=== PATIENT | male | born 1980 | race Caucasian/White ===

== ENCOUNTER 2018-05-16 12:39 | Inpatient (IN) | payer BC, OTHER ==
[~2018-05-16] VITALS: Ht 188 cm; Wt 108.9 kg
[2018-05-16 13:10] VITALS: BP 135/91
[2018-05-16] MEDS ORDERED: LORAZEPAM 1 MG TABLET PO PRN (13:45)
[2018-05-16] MEDS ORDERED: 6 DAY PHENOBARBITAL TAPER -SERENITY PROTOCOL PO PRN (13:45)
[2018-05-16] MEDS ORDERED: LOPERAMIDE HCL 2 MG CAPSULE PO PRN ×2 (13:45)
[2018-05-16] MEDS ORDERED: BUPRENORPHINE HCL 2 MG TAB.SUBL SL PRN (13:45)
[2018-05-16] MEDS ORDERED: MIRALAX 17 GM POWD.PACK PO PRN (13:45)
[2018-05-16] MEDS ORDERED: LORAZEPAM 2 MG/1 ML VIAL IM PRN (13:45)
[2018-05-16] MEDS ORDERED: ONDANSETRON 4 MG/2 ML VIAL IM PRN (13:45)
[2018-05-16] MEDS ORDERED: MAG HYDROX/AL HYDROX/SIMETH 30 ML LIQUID UDC PO PRN (13:45)
[2018-05-16] MEDS ORDERED: ONDANSETRON ODT 4 MG TAB.RAPDIS SL PRN (13:45)
[2018-05-16] MEDS ORDERED: diphenhydrAMINE 50 MG CAPSULE PO PRN (13:45)
[2018-05-16] MEDS ORDERED: MAGNESIUM HYDROXIDE 30 ML LIQUID UDC PO PRN (13:45)
[2018-05-16 14:06] LABS: *AMPHETAMINE, URINE NEGATIVE (NEGATIVE); *BARBITURATE, URINE POSITIVE (NEGATIVE); *CANNABINOID, URINE NEGATIVE (NEGATIVE); *COCCAINE, URINE NEGATIVE (NEGATIVE); *OPIATE, URINE NEGATIVE (NEGATIVE); *PHENCYCLIDINE SCREEN,URINE NEGATIVE (NEGATIVE)
[2018-05-16 14:13] LABS: *URINE HCG, QUAL NEGATIVE
[2018-05-16] MEDS: LEVETIRACETAM 500 MG TABLET PO SCH ×2 (14:43→21:18)
[2018-05-16] MEDS: MULTIVITAMINS,THERAPEUTIC TABLET PO SCH (14:43)
[2018-05-16 15:01] LABS: BASOPHILS % (AUTO) 0.6 % (0.0-2.0); EOSINOPHILS # (AUTO) 0.2 K/uL (0.0-0.7); HEMATOCRIT 45.3 % (36.7-47.1); HEMOGLOBIN 15.3 g/dL (12.5-16.3); LYMPHOCYTES # (AUTO) 1.7 K/uL (20.0-40.0); LYMPHOCYTES % (AUTO) 36.6 % (20.5-51.5); MEAN CORPUSCULAR HEMOGLOBIN 28.7 uug (23.8-33.4); MEAN CORPUSCULAR HGB CONC 34 g/dL (32.5-36.3); MEAN CORPUSCULAR VOLUME 84.7 fL (73.0-96.2); MONOCYTES # (AUTO) 0.5 K/uL (2.0-10.0); MONOCYTES % (AUTO) 10.2 % (0.0-11.0); NEUTROPHILS # (AUTO) 2.3 K/uL (1.8-8.9); NEUTROPHILS % (AUTO) 48.6 % (38.5-71.5); PLATELET COUNT (AUTO) 262 K/uL (152-348); RED BLOOD CELL COUNT(AUTO) 5.35 MIL/uL (4.06-5.63); WHITE BLOOD COUNT (AUTO) 4.7 K/uL (3.6-10.2)
[2018-05-16 15:14] LABS: ALANINE AMINOTRANSFERASE 137 U/L (16-63); ALKALINE PHOSPHATASE 93 U/L (50-136); AMYLASE 75 U/L (25-115); ASPARTATE AMINOTRANSFERASE 34 U/L (15-37); BILIRUBIN,TOTAL 0.2 mg/dL (0.2-1.0); CARBON DIOXIDE 32 mmol/L (21-32); CHLORIDE 102 mmol/L (98-107); GLUCOSE 94 mg/dL (74-106); LIPASE 207 U/L (73-393); POTASSIUM 4.1 mmol/L (3.5-5.1); TOTAL PROTEIN, SERUM 7.4 g/dL (6.4-8.2); UREA NITROGEN, BLOOD 6 mg/dL (7-18)
[2018-05-16 15:20] LABS: ETHANOL < 3 MG/DL (0-0)
[2018-05-16 15:24] LABS: THYROID STIMULATING HORMONE 1.325 mIU/mL (0.358-3.740)
[2018-05-16 16:30] VITALS: BP 115/61
[2018-05-16] MEDS: PHENOBARBITAL 60 MG TABLET PO SCH ×2 (17:13→21:18)
[2018-05-16 20:00] VITALS: BP 111/66
[2018-05-17] VITALS: BP 95/58
[2018-05-17 07:05] LABS: HEPATITIS B SURFACE AG Negative (Negative)
[2018-05-17 08:00] VITALS: BP 124/60
[2018-05-17] MEDS: PHENOBARBITAL 60 MG TABLET PO SCH ×3 (08:40→21:53)
[2018-05-17] MEDS: MULTIVITAMINS,THERAPEUTIC TABLET PO SCH (08:40)
[2018-05-17] MEDS: LEVETIRACETAM 500 MG TABLET PO SCH ×2 (08:40→21:53)
[2018-05-17] MEDS: BUPRENORPHINE HCL 2 MG TAB.SUBL SL SCH ×4 (08:41→21:54)
[2018-05-17] MEDS ORDERED: 5 DAY TAPER BUPRENORPHINE -SERENITY PROTOCOL SL PRN (09:00)
[2018-05-17] MEDS ORDERED: TUBERCULIN,PURIF.PROT.DERIV. 5 TU/0.1 ML TEST ID ONE (09:00)
[2018-05-17] MEDS ORDERED: AMITRIPTYLINE HCL 50 MG TABLET PO PRN (10:15)
[2018-05-17 12:00] VITALS: BP 103/46
[2018-05-17] MEDS: IBUPROFEN 600 MG TABLET PO PRN (14:17)
[2018-05-17] MEDS: METHOCARBAMOL 750 MG TABLET PO PRN (14:17)
[2018-05-17 16:00] VITALS: BP 114/62
[2018-05-17] MEDS: HYDROXYZINE PAMOATE 25 MG CAPSULE PO PRN (17:00)
[2018-05-17] MEDS: ACETAMINOPHEN 325 MG TABLET PO PRN (17:00)
[2018-05-17] MEDS: CLONIDINE HCL 0.1 MG TABLET PO PRN (17:01)
[2018-05-17] MEDS: LORAZEPAM 1 MG TABLET PO PRN (17:35)
[2018-05-17 20:00] VITALS: BP 129/71
[2018-05-18 00:30] VITALS: BP 136/87
[2018-05-18] MEDS: METHOCARBAMOL 750 MG TABLET PO PRN ×3 (00:40→20:41)
[2018-05-18] MEDS: LORAZEPAM 1 MG TABLET PO PRN ×2 (00:41→15:08)
[2018-05-18] MEDS: CLONIDINE HCL 0.1 MG TABLET PO PRN ×2 (00:42→20:39)
[2018-05-18 04:00] VITALS: BP 118/81
[2018-05-18 08:00] VITALS: BP 116/62
[2018-05-18] MEDS: LEVETIRACETAM 500 MG TABLET PO SCH ×2 (08:52→20:39)
[2018-05-18] MEDS: PHENOBARBITAL 60 MG TABLET PO SCH ×4 (08:52→20:39)
[2018-05-18] MEDS: IBUPROFEN 600 MG TABLET PO PRN (08:52)
[2018-05-18] MEDS: MULTIVITAMINS,THERAPEUTIC TABLET PO SCH (08:52)
[2018-05-18] MEDS: BUPRENORPHINE HCL 2 MG TAB.SUBL SL SCH ×3 (08:52→20:39)
[2018-05-18 12:00] VITALS: BP 105/52
[2018-05-18] MEDS: ACETAMINOPHEN 325 MG TABLET PO PRN (12:15)
[2018-05-18] MEDS: HYDROXYZINE PAMOATE 25 MG CAPSULE PO PRN (12:16)
[2018-05-18 16:00] VITALS: BP 126/75
[2018-05-18 20:00] VITALS: BP 130/74
[2018-05-18] MEDS: AMITRIPTYLINE HCL 50 MG TABLET PO PRN (20:41)
[2018-05-19] VITALS: BP 117/71
[2018-05-19 08:00] VITALS: BP 122/70
[2018-05-19] MEDS: MULTIVITAMINS,THERAPEUTIC TABLET PO SCH (08:38)
[2018-05-19] MEDS: LEVETIRACETAM 500 MG TABLET PO SCH ×2 (08:38→20:17)
[2018-05-19] MEDS: PHENOBARBITAL 60 MG TABLET PO SCH ×3 (08:38→20:18)
[2018-05-19] MEDS ORDERED: BUPRENORPHINE HCL 2 MG TAB.SUBL SL SCH (09:00)
[2018-05-19] MEDS ORDERED: TRAZODONE 50 MG TABLET PO PRN (10:15)
[2018-05-19 12:00] VITALS: BP 111/63
[2018-05-19] MEDS: BUPRENORPHINE HCL 2 MG TAB.SUBL SL SCH ×2 (15:08→20:25)
[2018-05-19 16:00] VITALS: BP 106/66
[2018-05-19] MEDS: METHOCARBAMOL 750 MG TABLET PO PRN (18:35)
[2018-05-19 20:00] VITALS: BP_SYST 123; BP_SYST 135; BP_DIAS 62; BP_DIAS 83
[2018-05-19] MEDS: ACETAMINOPHEN 325 MG TABLET PO PRN (20:17)
[2018-05-19] MEDS: HYDROXYZINE PAMOATE 25 MG CAPSULE PO PRN (22:20)
[2018-05-19] MEDS: CLONIDINE HCL 0.1 MG TABLET PO PRN (22:20)
[2018-05-19] MEDS: AMITRIPTYLINE HCL 50 MG TABLET PO PRN (22:21)
[2018-05-20] VITALS: BP 116/78
[2018-05-20 04:00] VITALS: BP 126/70
[2018-05-20 08:00] VITALS: BP 102/64
[2018-05-20] MEDS: BUPRENORPHINE HCL 2 MG TAB.SUBL SL SCH ×3 (09:13→21:03)
[2018-05-20] MEDS: PHENOBARBITAL 60 MG TABLET PO SCH ×2 (09:13→20:54)
[2018-05-20] MEDS: LEVETIRACETAM 500 MG TABLET PO SCH ×2 (09:13→20:54)
[2018-05-20] MEDS: MULTIVITAMINS,THERAPEUTIC TABLET PO SCH (09:13)
[2018-05-20 12:00] VITALS: BP 99/60
[2018-05-20 16:00] VITALS: BP 137/75
[2018-05-20 20:00] VITALS: BP 135/72
[2018-05-20] MEDS: METHOCARBAMOL 750 MG TABLET PO PRN (22:17)
[2018-05-20] MEDS: AMITRIPTYLINE HCL 50 MG TABLET PO PRN (22:17)
[2018-05-20] MEDS: HYDROXYZINE PAMOATE 25 MG CAPSULE PO PRN (22:17)
[2018-05-20] MEDS: CLONIDINE HCL 0.1 MG TABLET PO PRN (22:18)
[2018-05-21] VITALS: BP 134/81
[2018-05-21 04:00] VITALS: BP 138/88
[2018-05-21 08:23] VITALS: BP 126/78
[2018-05-21] MEDS ORDERED: PHENOBARBITAL 60 MG TABLET PO SCH (09:00)
[2018-05-21] MEDS ORDERED: BUPRENORPHINE HCL 2 MG TAB.SUBL SL SCH (09:00)
[2018-05-21] MEDS: MULTIVITAMINS,THERAPEUTIC TABLET PO SCH (09:02)
[2018-05-21] MEDS: LEVETIRACETAM 500 MG TABLET PO SCH ×2 (09:02→20:29)
[2018-05-21] MEDS: ACETAMINOPHEN 325 MG TABLET PO PRN (12:37)
[2018-05-21 13:38] VITALS: BP 137/73
[2018-05-21] MEDS ORDERED: AMIT50TA17 PO (13:48)
[2018-05-21] MEDS ORDERED: LEVE500T9 PO (13:48)
[2018-05-21] MEDS ORDERED: HYDR-3895 PO (13:48)
[2018-05-21] MEDS ORDERED: METH-406 PO (13:48)
[2018-05-21] MEDS ORDERED: NALO4SPR NS (13:48)
[2018-05-21] MEDS ORDERED: CLON0.1T14 PO (13:48)
[2018-05-21 16:00] VITALS: BP 128/85
[2018-05-21] MEDS: HYDROXYZINE PAMOATE 25 MG CAPSULE PO PRN (18:42)
[2018-05-21] MEDS: CLONIDINE HCL 0.1 MG TABLET PO PRN (18:43)
[2018-05-21] MEDS: METHOCARBAMOL 750 MG TABLET PO PRN (18:43)
[2018-05-21 20:00] VITALS: BP 141/90
[2018-05-21] MEDS ORDERED: BUPRENORPHINE HCL 2 MG TAB.SUBL SL ONE (21:00)
[2018-05-21] MEDS ORDERED: AMITRIPTYLINE HCL 50 MG TABLET ONE (22:48)
[2018-05-21] MEDS ORDERED: AMITRIPTYLINE HCL 25 MG TABLET ONE (22:57)
[2018-05-21] MEDS: IBUPROFEN 600 MG TABLET PO PRN (23:02)
[2018-05-21] MEDS: AMITRIPTYLINE HCL 50 MG TABLET PO PRN (23:03)
[2018-05-22] VITALS: BP 138/79
[2018-05-22 08:00] VITALS: BP 125/84
[2018-05-22] MEDS: MULTIVITAMINS,THERAPEUTIC TABLET PO SCH (09:00)
[2018-05-22] MEDS ORDERED: BUPRENORPHINE HCL 2 MG TAB.SUBL SL ONE (09:00)
[2018-05-22] MEDS: LEVETIRACETAM 500 MG TABLET PO SCH (09:00)
[2018-05-22 12:00] VITALS: BP 138/83
[2018-05-22 16:00] VITALS: BP 133/85
[2018-05-22] MEDS: CLONIDINE HCL 0.1 MG TABLET PO PRN (18:03)
[2018-05-22] MEDS ORDERED: QUETIAPINE FUMARATE 25 MG TABLET PO PRN ×2 (19:00→19:15)
[2018-05-22 20:00] VITALS: BP 148/88
== END 2018-05-22 21:10 | disposition home or self-care (01) | DRG 895 ==
LOC: SRC 13:03
PROVIDERS: ADMIT Family Medicine Addiction Medicine; ATTEND Family Medicine Addiction Medicine
PROC: HZ2ZZZZ Detoxification Services for Substance Abuse Treatment (ICD-10-PCS; principal; 2018-05-16)
PROC: HZ31ZZZ Individual Counseling for Substance Abuse Treatment, Behavioral (ICD-10-PCS; 2018-05-18)
DX: F10.230 Alcohol dependence with withdrawal, uncomplicated (principal); G40.509 Epileptic seizures related to external causes, not intractable, without status epilepticus; F11.23 Opioid dependence with withdrawal; Y90.0 Blood alcohol level of less than 20 mg/100 ml; F41.9 Anxiety disorder, unspecified; Z81.3 Family history of other psychoactive substance abuse and dependence; F32.9 Major depressive disorder, single episode, unspecified; B19.20 Unspecified viral hepatitis C without hepatic coma; F13.230 Sedative, hypnotic or anxiolytic dependence with withdrawal, uncomplicated; G47.00 Insomnia, unspecified; Z79.899 Other long term (current) drug therapy
CPT/HCPCS: 36415; 80307; 80345; 80346; 83690; 83735; 84443; 84703; 85025; 86592; 86705; 86803; 87340; 87806; A4663; G0480; J8499; Q0162